=== PATIENT | female | born 1975 | race Hispanic/Latino ===

== ENCOUNTER 2017-11-13 22:34 | Emergency (ER) | payer BC, OTHER ==
[~2017-11-13 22:34] MED LIST: IBUP-2070 PO; ONDA4TAB9 PO
[2017-11-13] MEDS ORDERED: LIDOCAINE HCL 2% JELLY 5 ML ONE (23:55)
[2017-11-13] MEDS ORDERED: ONDANSETRON ODT 4 MG TAB ONE (23:57)
[2017-11-13] MEDS ORDERED: MORPHINE SULFATE 10 MG/ML 1ML SYG ONE (23:59)
[2017-11-14] MEDS ORDERED: TETANUS/DIPHTHERIA TOXOID [ADULT] 0.5 ML VIAL IM ONE
== END 2017-11-14 01:43 | disposition home or self-care (01) ==
LOC: EDH 22:34
DX: T23.242A Burn of second degree of multiple left fingers (nail), including thumb, initial encounter (principal); T23.141A Burn of first degree of multiple right fingers (nail), including thumb, initial encounter; T31.0 Burns involving less than 10% of body surface; Z98.51 Tubal ligation status; Z90.710 Acquired absence of both cervix and uterus; X19.XXXA Contact with other heat and hot substances, initial encounter; Y93.89 Activity, other specified; Y92.098 Other place in other non-institutional residence as the place of occurrence of the external cause; Y99.8 Other external cause status
CPT/HCPCS: 16020; 90471; 90714; 96372; 99284; J2270